=== PATIENT | male | born 1975 | race Caucasian/White ===

== ENCOUNTER 2024-08-31 07:34 | Day surgery (SDC) | payer BC, SELFPAY ==
[2024-08-31 07:51] VITALS: BMI 45.7
[2024-08-31 07:56] VITALS: BP 126/73; PULSE 57; RESP 20; TEMP 36.2; O2SAT 97
[2024-08-31] MEDS: LACTATED RINGERS 1000 ML 1,000 ML 100 ML IV (08:12)
[2024-08-31] MEDS: SODIUM CHLORIDE 0.9 % (FLUSH) 10 ML SYRINGE IVF (08:12)
--- NOTE | 2024-08-31 08:45 | CRLHL7_ITS ---
For Patients: As a result of the Century Cures Act, medical imaging exams and procedure reports are released immediately into your electronic medical record. You may view this report before your referring provider. If you have questions, please contact your health care provider. Indication: Cheilectomy, 1st MPJ, Hammertoe Correction Technique: Three fluoroscopic images of the right forefoot. Fluoroscopic time 11.9 seconds. IMPRESSION: Fluoroscopic guidance for hammertoe correction of the 2nd toe. Dictated by Geo Barrios MD @ 08/31/2024 11:55:22 AM (Electronically Signed)
[2024-08-31] MEDS: BUPIVACAINE 0.25% 30 ML INJECTION (09:50)
[2024-08-31] MEDS: CEFAZOLIN 2 GM INJ IVP (10:00)
--- NOTE | 2024-08-31 11:56 | P.ANES_ITS ---
Anesthesia Charges Start Date/Time Anesthesia Start Date: 08/31/24 Anesthesia Start Time: 09:44 Stop Date/Time Anesthesia Stop Date: 08/31/24 Anesthesia Stop Time: 11:53 Coding CPT Codes CPT Codes: ANESTH LOWER LEG BONE SURG - 40797 ([id number]) P3 - PATIENT W/SEVERE SYS DISEASE, QZ - PER DIEM CLERK SVC W/O PRINTING AND STAMPING SUPERVISOR BY
--- NOTE | 2024-08-31 11:56 | W.ANESCHARGE ---
Anesthesia Charges Start Date/Time Anesthesia Start Date: 08/31/24 Anesthesia Start Time: 09:44 Stop Date/Time Anesthesia Stop Date: 08/31/24 Anesthesia Stop Time: 11:53 Coding CPT Codes CPT Codes: ANESTH LOWER LEG BONE SURG - 51482 ([id number]) P3 - PATIENT W/SEVERE SYS DISEASE, QZ - ASSOCIATE PROFESSOR OF MEDIA ARTS SVC W/O GROUP CONTROLLER BY
[2024-08-31 12:00] VITALS: BP 122/49; PULSE 61; RESP 20; TEMP 36.3; O2SAT 96
[2024-08-31 12:12] VITALS: BP 117/78; PULSE 74; RESP 20; O2SAT 97
[2024-08-31 12:30] VITALS: BP 127/78; PULSE 62; RESP 20; O2SAT 94
[2024-08-31 12:45] VITALS: BP 125/78; PULSE 60; RESP 20; O2SAT 97
[2024-08-31] MEDS: OxyCODONE/APAP 5-325 TABLET PO (12:50)
[2024-08-31 13:00] VITALS: BP 127/76; PULSE 56; RESP 20; TEMP 36.5; O2SAT 95
--- NOTE | 2024-08-31 13:42 | W.PM.PODPROC ---
Date of Procedure: 08/31/24 Surgeon: Andres Lloyd DPM Pre-op Diagnosis: 1. Hallux rigidus right 2. Bone spur right foot 3. Hammertoe 2nd digit right 4. 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 Hallux rigidus right 2. Bone spur right foot 3. Hammertoe 2nd digit right 4. 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 Cheilectomy 1st MPJ right 2. Hammertoe repair 2nd digit right 3. Partial 2nd metatarsal head resection right Indications: Patient's incision having ongoing pain not responded to nonsurgical care. He has elected surgical intervention. I reviewed the procedure, recovery, expectation potential complications. These include but not limited to: Poor wound healing, infection, continued pain, potential need for future surgery, progressive deformity, flail toe, floppy toe, complex regional pain syndrome, deep venous thrombosis, pulmonary embolism possible . He understands risks written consent was obtained. Site marked. Procedure Description: Patient brought the operating room placed supine position on operating table that time IV sedation initiated local anesthetic injected into the right foot. He was prepped and draped in a sterile fashion. Standard time-out protocol followed. Right foot was exsanguinated the tourniquet inflated to 250 mm Hg. Dorsal incision was made over the 1st metatarsophalangeal joint. The incision was carried down through skin subcutaneous tissues. Linear periosteal capsular tissue incision was made. Two large osteophytes were noted directing from the proximal phalangeal base. These were removed in total. A rongeur was used to remove all bony overhang from the proximal phalangeal base. The cartilaginous surface of the proximal phalangeal base was intact without significant loss. There was excessive bony spurring the dorsal, dorsal medial, dorsal lateral 1st metatarsal head. This areas were resected with a sagittal saw and remodeled with a rotary bur. The articular surface was overwhelmingly clear of arthritic changes with the exception of the dorsal 1/8 which was resected with the saw. Wound was thoroughly irrigated normal sterile saline. C-arm images confirmed resection. Joint capsule was remodeled and closed with 3-0 Vicryl. Subcutaneous tissues reapproximated 4-0 Monocryl and skin closed with 4-0 Prolene. Linear incision was made over the 2nd metatarsophalangeal joint extended over the PIPJ. At the level of the PIPJ the a callus lesion was ellipsed and removed. Blunt dissection was carried down both medial and lateral at the metatarsophalangeal joint. The to extensor tendons were transected at the level of the MPJ. The dorsal metatarsophalangeal joint was also released with a transverse incision. Additional release of both the medial and lateral aspects also performed. The proximal phalanx remained dorsally subluxed. A McGlamry periosteal elevator was inserted in the plantar adhesions released. Slight improvement in motion of the proximal phalangeal base but not much. It remained dorsally dislocated. The articular surface of the 2nd metatarsal was significantly abnormal and there are the changes to the proximal phalangeal base. This plantar realize that the 2nd MPJ was not going to be aligned or stay realigned. Decision was made to perform a partial 2nd metatarsal head resection to remove the abnormal articular surface and decompress the joint. This was done using a sagittal saw and once down the 2nd toe dropped into a much improved position. Wound was thoroughly irrigated normal sterile saline. Transverse incision was made through the extensor tendon and joint capsule at the PIPJ of the 2nd toe. The medial and collateral ligaments transected. An oscillating saw was used to resect the head of the proximal phalanx and the base of the middle phalanx. He would Dynite hammertoe implant was then inserted using standard technique. The K-wire was then advanced through the implant and into the proximal phalanx and through the phalangeal base. It was directly visualized. The 2nd toe was held in anatomic alignment and the K-wire driven into the 2nd metatarsal. C-arm confirmed excellent position. Wounds were irrigated normal sterile saline. The joint capsule was in fluid over the distal end of the 2nd metatarsal within the false joint. His sutured with 4-0 Vicryl. Extensor tendon at the PIPJ was remodeled and repaired with 4-0 Vicryl. Subcutaneous tissues reapproximated 4-0 Monocryl. Skin was closed with 4-0 Prolene. K-wire was bent cut and capped. The tourniquet was released and normal capillary fill time returned all digits. Sterile dressing was applied. He was placed in a well-padded cam. He was transferred from OR to PACU vital signs stable and vascular status intact to the right foot. We discharged per same-day surgery. He is given both written and verbal postop instructions. He is given oxycodone for pain. He is weight-bearing to the heel. Will follow-up in 2 days. Anesthesia: MAC and local Hemostasis: ankle Estimated blood loss (mL): 2 Implants: Arthrex Dynite hammertoe implant x1, 0.045 smooth K-wire x1 Specimens: none sent Disposition: same day
== END 2024-08-31 13:18 | disposition home or self-care (01) ==
PROVIDERS: PCP Family Medicine; Visit Provider Podiatrist
PROC: (CPT 28289; principal; 2024-08-31 08:45)
PROC: (CPT 28285; 2024-08-31 08:45)
DX: M20.21 Hallux rigidus, right foot (principal); M20.41 Other hammer toe(s) (acquired), right foot; M77.31 Calcaneal spur, right foot; M77.51 Other enthesopathy of right foot and ankle
CPT/HCPCS: 28289; 28285; 28308; 01480; 73620; 76000; A9270; C1713; J0665; J0690; J1100; J2250; J2405; J2704; J3010; J3490; J7120

== ENCOUNTER 2025-03-02 12:47 | Outpatient (CLI) | payer BC, SELFPAY | END 2025-03-02 12:48 | disposition home or self-care (01) | PROVIDERS: PCP Family Medicine; Visit Provider Family Medicine | DX: M54.16 Radiculopathy, lumbar region (principal); M51.26 Other intervertebral disc displacement, lumbar region | CPT/HCPCS: 64483; J1100; Q9966 ==